=== PATIENT | male | born 1975 | race American Indian/Alaskan Native ===

== ENCOUNTER 2020-02-10 00:39 | Emergency (ER) | payer SELFPAY ==
[2020-02-10] MEDS ORDERED: dexAMETHasone 20 MG/5 ML VIAL IM ONE (04:29)
[2020-02-10] MEDS ORDERED: KETOROLAC 60 MG/2 ML INJ IM ONE (04:29)
[2020-02-10] MEDS ORDERED: CYCLOBENZAPRINE 10 MG TAB PO ONE (04:29)
--- NOTE | 2020-02-10 04:54 | Emergency Department Report ---
ED Neck Pain/Injury HPI - General Chief Complaint: Neck Pain/Injury Stated Complaint: NECK PAIN Mode of arrival: Ambulatory Limitations: No Limitations - History of Present Illness Initial Comments: Patient is a 44-year-old -[place] male with no past medical history who presents to the ED with complaint of acute onset persistent severe nontraumatic right lateral neck pain for the last 3 days. Patient states that he woke up with pain and has been unable to perform any active range of motion or movement in the neck on the right side for the last 3 days especially worse in the last 2 days. Patient states that he has been taking [id number] medication with no relief. Patient denies chest pain, shortness of breath, dizziness, syncope, headache, traumatic injury, heavy lifting, nausea, vomiting, fever, chills, fall, numbness and tingling or weakness of upper extremities bilaterally, dysphagia, dysphonia or back pain. MD Complaint: neck pain, other (right lateral neck pain and stiffness) -: Sudden, days(s) (3) Place: home Radiation: right lateral Severity: severe Severity scale (0 -10): 8 Quality: sharp Consistency: constant Improves With: none Worsens With: movement of neck Context: unknown (spontaneous, woke up with pain) Associated Symptoms: none. denies: headache, fever, numbness, tingling, weakness, vertigo, difficulty walking, swollen glands, difficulty swallowing, nausea, vomiting Treatments Prior to Arrival: none - Related Data Previous Rx's Medication Instructions Recorded Last Taken Type Baclofen 20 mg PO Q8H PRN #30 tablet 02/10/20 Unknown Rx Naproxen 500 mg PO Q12H PRN #30 tablet 02/10/20 Unknown Rx predniSONE [Deltasone] 40 mg PO QDAY #10 tab 02/10/20 Unknown Rx traMADoL [Ultram] 50 mg PO Q6HR PRN #10 tablet 02/10/20 Unknown Rx ED Review of Systems ROS: Stated complaint: NECK PAIN Other details as noted in HPI Constitutional: denies: chills, fever Eyes: denies: eye pain, eye discharge, vision change ENT: denies: ear pain, throat pain Respiratory: denies: cough, shortness of breath, wheezing Cardiovascular: denies: chest pain, palpitations Endocrine: no symptoms reported Gastrointestinal: denies: abdominal pain, nausea, diarrhea Genitourinary: denies: urgency, dysuria Musculoskeletal: arthralgia (right lateral neck pain), myalgia. denies: back pain, joint swelling Skin: denies: rash, lesions Neurological: denies: headache, weakness, paresthesias Psychiatric: denies: anxiety, depression Hematological/Lymphatic: denies: easy bleeding, easy bruising ED Past Medical Hx - Past Medical History Previous Medical History?: No - Surgical History Past Surgical History?: No - Social History Smoking Status: Current Every Day Smoker Substance Use Type: None - Medications Home Medications: Home Medications Medication Instructions Recorded Confirmed Last Taken Type Baclofen 20 mg PO Q8H PRN #30 tablet 02/10/20 Unknown Rx Naproxen 500 mg PO Q12H PRN #30 tablet 02/10/20 Unknown Rx predniSONE [Deltasone] 40 mg PO QDAY #10 tab 02/10/20 Unknown Rx traMADoL [Ultram] 50 mg PO Q6HR PRN #10 tablet 02/10/20 Unknown Rx ED Physical Exam - General Limitations: No Limitations General appearance: alert, in no apparent distress - Head Head exam: Present: atraumatic, normocephalic, normal inspection - Eye Eye exam: Present: normal appearance, PERRL, EOMI Pupils: Present: normal accommodation - ENT ENT exam: Present: normal exam, normal orophraynx, mucous membranes moist, TM's normal bilaterally, normal external ear exam - Neck Neck exam: Present: normal inspection, tenderness (Palpable right lateral sternocleidomastoid and paraspinal musculoskeletal tenderness). Absent: meningismus, full ROM (Limited ROM due to pain on right lateral neck), lymphadenopathy, thyromegaly - Respiratory Respiratory exam: Present: normal lung sounds bilaterally. Absent: respiratory distress, wheezes, rales, rhonchi, chest wall tenderness, accessory muscle use - Cardiovascular Cardiovascular Exam: Present: regular rate, normal rhythm, normal heart sounds. Absent: systolic murmur, diastolic murmur, rubs, gallop - GI/Abdominal GI/Abdominal exam: Present: soft, normal bowel sounds. Absent: tenderness, guarding, hyperactive bowel sounds, hypoactive bowel sounds - Extremities Exam Extremities exam: Present: normal inspection, full ROM, normal capillary refill - Back Exam Back exam: Present: normal inspection, full ROM. Absent: tenderness, CVA tenderness (R), CVA tenderness (L), muscle spasm, paraspinal tenderness, vertebral tenderness - Neurological Exam Neurological exam: Present: alert, oriented X3, CN II-XII intact, normal gait, reflexes normal - Psychiatric Psychiatric exam: Present: normal affect, normal mood - Skin Skin exam: Present: warm, dry, intact, normal color. Absent: rash ED Course Vital Signs 02/10/20 00:46 Temperature 98.6 F Pulse Rate 79 Respiratory 20 Rate Blood Pressure 141/83 O2 Sat by Pulse 100 Oximetry ED Medical Decision Making - Medical Decision Making This is a 44-year-old -[place] male with no past medical history presented to the ED with nontraumatic right lateral neck pain with limited range of motion of neck for the last 3 days. In the ED, patient is alert and oriented x3 and is not in distress with normal vital sign but appears to be in pain and uncomfortable during the physical exam. Patient was treated for pain in the ED and on reevaluation, patient's pain is moderately controlled and was discharged home on pain medications and muscle relaxants and patient was advised to follow-up with his primary care physician in 5 to 7 days for reevaluation or return to the ED immediately if symptoms get worse. - Differential Diagnosis cervical strain; sternocleidomastoid strain; torticollis; cervical sprain Critical care attestation.: If time is entered above; I have spent that time in minutes in the direct care of this critically ill patient, excluding procedure time. ED Disposition Clinical Impression: Neck pain on right side, Acute torticollis Strain of sternocleidomastoid muscle Qualifiers: Encounter type: initial encounter Qualified Code(s): S16.1XXA - Strain of muscle, fascia and tendon at neck level, initial encounter Disposition: - TO HOME OR SELFCARE Is pt being admited?: No Does the pt Need Aspirin: No Condition: Stable Instructions: Muscle Strain (ED), Spasmodic Torticollis (ED), Cervical Sprain (ED) Additional Instructions: Take medication with food, drink plenty of fluids and follow-up with your primary care physician in 5 to 7 days for reevaluation. Return to the ED immediately if symptoms get worse. Prescriptions: Baclofen 20 mg PO Q8H PRN #30 tablet PRN Reason: Muscle Spasm predniSONE [Deltasone] 40 mg PO QDAY #10 tab Naproxen 500 mg PO Q12H PRN #30 tablet PRN Reason: Pain , Severe (7-10) traMADoL [Ultram] 50 mg PO Q6HR PRN #10 tablet PRN Reason: Pain Referrals: [facility] [Provider Group] - 7-10 days Time of Disposition: 04:52 Print Language: QATARI
[2020-02-10 05:16] VITALS: BP 138/80
== END 2020-02-10 05:18 | disposition home or self-care (01) ==
LOC: ED 00:39
DX: S16.1XXA Strain of muscle, fascia and tendon at neck level, initial encounter (principal); M43.6 Torticollis; F17.200 Nicotine dependence, unspecified, uncomplicated; Z79.899 Other long term (current) drug therapy; X58.XXXA Exposure to other specified factors, initial encounter; Y93.89 Activity, other specified; Y92.89 Other specified places as the place of occurrence of the external cause; Y99.8 Other external cause status
CPT/HCPCS: 96372; 99283; J1100; J1885

== ENCOUNTER 2020-02-19 22:45 | Emergency (ER) | payer SELFPAY ==
[2020-02-19] MEDS ORDERED: SODIUM CHLORIDE 0.9% 1000 ML 1,000 ML IV ONE (23:10)
--- NOTE | 2020-02-19 23:19 | Emergency Department Report ---
ED General Adult HPI - General Chief complaint: Weakness Stated complaint: NOT FEELING WELL Time Seen by Provider: 02/19/20 23:03 Source: patient, EMS Mode of arrival: Ambulatory Limitations: No Limitations - History of Present Illness Initial comments: Patient is a 44-year-old male presents emergency room with complaints of fatigue for the last few days. He states that he feels dehydrated but denies any vomiting or diarrhea. Patient states that he is homeless and just wants a safe space to lay down and go to sleep because he is tired. He denies any fever, cough, SI, HI, hallucinations, abdominal pain, chest pain, shortness of breath, urinary symptoms, dark urine, muscle cramping. He denies any past medical history. He denies any allergies to medications. He denies any daily medications. He states that he is a smoker. He denies any alcohol or drug use. - Related Data Previous Rx's Medication Instructions Recorded Last Taken Type Baclofen 20 mg PO Q8H PRN #30 tablet 02/10/20 Unknown Rx Naproxen 500 mg PO Q12H PRN #30 tablet 02/10/20 Unknown Rx predniSONE [Deltasone] 40 mg PO QDAY #10 tab 02/10/20 Unknown Rx traMADoL [Ultram] 50 mg PO Q6HR PRN #10 tablet 02/10/20 Unknown Rx Allergies Allergy/AdvReac Type Severity Reaction Status Date / Time No Known Allergies Allergy Unverified 02/10/20 05:13 ED Review of Systems ROS: Stated complaint: NOT FEELING WELL Other details as noted in HPI Comment: All other systems reviewed and negative ED Past Medical Hx - Social History Smoking Status: Current Every Day Smoker Substance Use Type: None - Medications Home Medications: Home Medications Medication Instructions Recorded Confirmed Last Taken Type Baclofen 20 mg PO Q8H PRN #30 tablet 02/10/20 Unknown Rx Naproxen 500 mg PO Q12H PRN #30 tablet 02/10/20 Unknown Rx predniSONE [Deltasone] 40 mg PO QDAY #10 tab 02/10/20 Unknown Rx traMADoL [Ultram] 50 mg PO Q6HR PRN #10 tablet 02/10/20 Unknown Rx ED Physical Exam - General Limitations: No Limitations General appearance: alert, in no apparent distress - Head Head exam: Present: atraumatic, normocephalic - Eye Eye exam: Present: normal appearance - ENT ENT exam: Present: mucous membranes moist - Respiratory Respiratory exam: Present: normal lung sounds bilaterally. Absent: respiratory distress, wheezes, rales, rhonchi, stridor, chest wall tenderness, accessory muscle use, decreased breath sounds, prolonged expiratory - Cardiovascular Cardiovascular Exam: Present: normal rhythm, tachycardia, normal heart sounds. Absent: systolic murmur, diastolic murmur, rubs, gallop - Neurological Exam Neurological exam: Present: alert, oriented X3 - Psychiatric Psychiatric exam: Present: normal affect, normal mood - Skin Skin exam: Present: warm, dry, intact ED Course Vital Signs 02/19/20 02/19/20 02/19/20 22:55 23:03 23:53 Temperature 97.7 F Pulse Rate 119 H 110 H 76 Respiratory 18 16 16 Rate Blood Pressure 124/67 Blood Pressure [Right] O2 Sat by Pulse 97 98 100 Oximetry 02/20/20 01:17 Temperature 98.1 F Pulse Rate 96 H Respiratory 17 Rate Blood Pressure Blood Pressure 153/98 [Right] O2 Sat by Pulse 100 Oximetry ED Medical Decision Making - Lab Data Result diagrams: 02/19/20 23:15 02/19/20 23:15 Lab Results 02/19/20 02/19/20 Range/Units 23:15 23:15 WBC 6.3 (4.5-11.0) K/mm3 RBC 4.98 (3.65-5.03) M/mm3 Hgb 13.9 (11.8-15.2) gm/dl Hct 41.5 (35.5-45.6) % MCV 83 L (84-94) fl MCH 28 (28-32) pg MCHC 33 (32-34) % RDW 14.6 (13.2-15.2) % Plt Count 199 (140-440) K/mm3 Lymph % (Auto) 35.3 H (13.4-35.0) % Morton % (Auto) 10.9 H (0.0-7.3) % Eos % (Auto) 1.3 (0.0-4.3) % Baso % (Auto) 1.3 (0.0-1.8) % Lymph # 2.2 (1.2-5.4) K/mm3 Morton # 0.7 (0.0-0.8) K/mm3 Eos # 0.1 (0.0-0.4) K/mm3 Baso # 0.1 (0.0-0.1) K/mm3 Seg Neutrophils % 51.2 (40.0-70.0) % Seg Neutrophils # 3.2 (1.8-7.7) K/mm3 Sodium 137 (137-145) mmol/L Potassium 3.5 L (3.6-5.0) mmol/L Chloride 98.7 (98-107) mmol/L Carbon Dioxide 27 (22-30) mmol/L Anion Gap 15 mmol/L BUN 14 (9-20) mg/dL Creatinine 1.2 (0.8-1.5) mg/dL Estimated GFR > 60 ml/min BUN/Creatinine Ratio 12 % Glucose 65 L (75-100) mg/dL Calcium 9.8 (8.4-10.2) mg/dL Total Bilirubin 0.30 (0.1-1.2) mg/dL AST 59 H (5-40) units/L ALT 36 (7-56) units/L Alkaline Phosphatase 73 (35-129) units/L Total Creatine Kinase 2628 H (55-170) units/L Total Protein 8.6 H (6.3-8.2) g/dL Albumin 4.9 (3.9-5) g/dL Albumin/Globulin Ratio 1.3 % Vital Signs 02/19/20 02/19/20 02/19/20 22:55 23:03 23:53 Temperature 97.7 F Pulse Rate 119 H 110 H 76 Respiratory 18 16 16 Rate Blood Pressure 124/67 Blood Pressure [Right] O2 Sat by Pulse 97 98 100 Oximetry 02/20/20 01:17 Temperature 98.1 F Pulse Rate 96 H Respiratory 17 Rate Blood Pressure Blood Pressure 153/98 [Right] O2 Sat by Pulse 100 Oximetry - Medical Decision Making Patient is a 44-year-old male presents emergency room with complaints of fatigue for the last few days. He states that he feels dehydrated but denies any vomiting or diarrhea. Patient states that he is homeless and just wants a safe space to lay down and go to sleep because he is tired. He denies any fever, cough, SI, HI, hallucinations, abdominal pain, chest pain, shortness of breath, urinary symptoms, dark urine, muscle cramping. He denies any past medical history. He denies any allergies to medications. He denies any daily medications. He states that he is a smoker. He denies any alcohol or drug use. Initial vitals with tachycardia which improved upon repeat to normal. CBC is normal, H&H is normal. CMP with very mild hypokalemia at 3.5, patient given K- Dur, hypoglycemia at 65, patient given dinner, peanut butter crackers, juice, AST mildly elevated with normal ALT, normal bilirubin, normal alk phos, CK elevated at 2628 patient given 2 L of normal saline, kidney function is normal. Discussed all results with patient. Advised patient Please increase your water intake over the next several days. Follow-up with a primary care doctor. Return to the emergency room immediately for any new or worsening symptoms including but not limited to shortness of breath, difficulty breathing, high fever, dark urine, muscle cramping, chest pain, unable to tolerate by mouth intake, etc. Consult for case management placed for the the morning for patient to have resources for shelters, patient left prior to speaking to case management - Differential Diagnosis Anemia, electrolyte disturbance, rhabdomyolysis, viral syndrome, dehydratio Critical care attestation.: If time is entered above; I have spent that time in minutes in the direct care of this critically ill patient, excluding procedure time. ED Disposition Clinical Impression: Hypokalemia, Hypoglycemia, Elevated CK Fatigue Qualifiers: Fatigue type: unspecified Qualified Code(s): R53.83 - Other fatigue Disposition: DC- TO HOME OR SELFCARE Is pt being admited?: No Does the pt Need Aspirin: No Condition: Stable Instructions: Dehydration (ED), Rhabdomyolysis (ED) Additional Instructions: Please increase your water intake over the next several days. Follow-up with a primary care doctor. Return to the emergency room immediately for any new or worsening symptoms including but not limited to shortness of breath, difficulty breathing, high fever, dark urine, muscle cramping, chest pain, unable to tolerate by mouth intake, etc. Referrals: SHAUN GARCIA MD [Staff Physician] - 2-3 Days [facility] [Provider Group] - 2-3 Days [facility] [Outside] - 2-3 Days [facility] [Outside] - 2-3 Days Time of Disposition: 01:05 Print Language: BENGALI
[2020-02-19 23:36] LABS: Basophils # (Auto) 0.1 K/mm3 (0.0-0.1); Basophils % (Auto) 1.3 % (0.0-1.8); Eosinophils # (Auto) 0.1 K/mm3 (0.0-0.4); Eosinophils % (Auto) 1.3 % (0.0-4.3); Hematocrit 41.5 % (35.5-45.6); Hemoglobin 13.9 gm/dl (11.8-15.2); Lymphocytes # (Auto) 2.2 K/mm3 (1.2-5.4); Lymphocytes % (Auto) 35.3 % (13.4-35.0); Mean Corpuscular HGB Conc 33 % (32-34); Mean Corpuscular Volume 83 fl (84-94); Monocytes # (Auto) 0.7 K/mm3 (0.0-0.8); Monocytes % (Auto) 10.9 % (0.0-7.3); Platelet Count 199 K/mm3 (140-440); Red Blood Count 4.98 M/mm3 (3.65-5.03); Red Cell Distribution Width 14.6 % (13.2-15.2)
[2020-02-20] LABS: Alanine Aminotransferase 36 units/L (7-56); Albumin 4.9 g/dL (3.9-5); BUN/Creatinine Ratio 12; Blood Urea Nitrogen 14 mg/dL (9-20); Calcium 9.8 mg/dL (8.4-10.2); Hemolysis Index 7
[2020-02-20] MEDS ORDERED: POTASSIUM CHLORIDE ER 20 MEQ TAB PO ONE (00:11)
[2020-02-20] MEDS ORDERED: SODIUM CHLORIDE 0.9% 1000 ML 1,000 ML IV ONE (00:16)
[2020-02-20 01:21] VITALS: BP 153/98
== END 2020-02-20 01:27 | disposition home or self-care (01) ==
LOC: ED 22:45
DX: E87.6 Hypokalemia (principal); E16.2 Hypoglycemia, unspecified; R74.8 Abnormal levels of other serum enzymes; R53.83 Other fatigue; E86.0 Dehydration; F17.200 Nicotine dependence, unspecified, uncomplicated; Z79.899 Other long term (current) drug therapy
CPT/HCPCS: 36415; 80053; 82550; 85025; 96360; 99284; J7030